=== PATIENT | male | born 1990 | race Caucasian/White ===

== ENCOUNTER 2016-11-03 01:46 | Emergency (ER) | payer SELFPAY ==
[~2016-11-03] VITALS: Ht 170.2 cm; Wt 77.0 kg
[2016-11-03] MEDS ORDERED: TETANUS, DIPHTHERIA, PERTUSSIS VAC/PF 0.5ML (>7YR OLD) IM ONE (02:15)
[2016-11-03] MEDS ORDERED: LIDOCAINE HCL/EPINEPHRINE 1%-EPI 1:100,000 20 ML VIAL INFIL ONE (02:15)
[2016-11-03] MEDS ORDERED: SODIUM CHLORIDE 0.9% 1000ML BAG (SEPSIS BOLUS) IV ONE (02:15)
[2016-11-03] MEDS ORDERED: BACITRACIN ZINC OINT UDPKT TOP ONE (02:15)
[2016-11-03 02:39] LABS: BASOPHILS % 0.7 % (0.0-2.0); EOSINOPHILS % 0.1 % (0.0-5.0); HEMATOCRIT. 44.8 % (42.0-52.0); HEMOGLOBIN. 15.6 g/dL (14.0-18.0); LYMPHOCYTES % 15.5 % (20.0-50.0); MEAN CORPUSCULAR HEMOGLOBIN 32.8 pg (28.0-32.0); MEAN CORPUSCULAR VOLUME 94.1 fL (80.0-94.0); MEAN PLATELET VOLUME 6.5 fl (7.4-10.4); MONOCYTES % 14.7 % (2.0-8.0); PLATELET 215 x1000/uL (130-400); RED BLOOD CELL COUNT 4.76 mill/uL (4.7-6.1); RED CELL DISTRIBUTION WIDTH 13.1 % (11.6-14.6)
[2016-11-03 02:48] LABS: PARTIAL THROMBOPLASTIN TIME 24.3 sec (23.4-31.0); PROTHROMBIN TIME 10.7 sec (9.4-11.6)
[2016-11-03 02:55] LABS: CARBON DIOXIDE 28 mEq/L (21-32); CHLORIDE 103 mEq/L (98-107); CREATINE KINASE 289 IU/L (39-308)
[2016-11-03] MEDS ORDERED: LIDOCAINE HCL 1%/EPI 1:200,000 30 ML VIAL MC NR (04:15)
[2016-11-03 04:30] LABS: BASOPHILS % 0.1 % (0.0-2.0); EOSINOPHILS % 0.1 % (0.0-5.0); HEMATOCRIT. 43.5 % (42.0-52.0); LYMPHOCYTES % 17.3 % (20.0-50.0); MEAN CORPUSCULAR HEMOGLOBIN 32.4 pg (28.0-32.0); MEAN CORPUSCULAR VOLUME 94.1 fL (80.0-94.0); MEAN PLATELET VOLUME 6.7 fl (7.4-10.4); MONOCYTES % 11.3 % (2.0-8.0); NEUTROPHILS % 71.2 % (40.0-76.0); PLATELET 192 x1000/uL (130-400); RED BLOOD CELL COUNT 4.62 mill/uL (4.7-6.1); RED CELL DISTRIBUTION WIDTH 13.2 % (11.6-14.6)
[2016-11-03 05:54] VITALS: BP 133/65
== END 2016-11-03 06:50 | disposition home or self-care (01) ==
LOC: ER 01:46
DX: S02.2XXA Fracture of nasal bones, initial encounter for closed fracture (principal); S00.83XA Contusion of other part of head, initial encounter; S16.1XXA Strain of muscle, fascia and tendon at neck level, initial encounter; S01.81XA Laceration without foreign body of other part of head, initial encounter; T51.0X1A Toxic effect of ethanol, accidental (unintentional), initial encounter; Y00.XXXA Assault by blunt object, initial encounter; Y93.89 Activity, other specified; Y92.488 Other paved roadways as the place of occurrence of the external cause
CPT/HCPCS: 36415; 70450; 70486; 72125; 80053; 82550; 83690; 85025; 85610; 85730; 96360; 96361; 99285; G0482; J3490; J7030; Z7610

== ENCOUNTER 2018-07-05 04:06 | Emergency (ER) | payer SELFPAY ==
[~2018-07-05] VITALS: Ht 170.2 cm; Wt 83.0 kg
[2018-07-05 04:32] VITALS: BP 142/59
== END 2018-07-05 04:36 | disposition left against medical advice (07) ==
LOC: ER 04:06
DX: Z53.21 Procedure and treatment not carried out due to patient leaving prior to being seen by health care provider (principal)

== ENCOUNTER 2019-05-06 14:51 | Emergency (ER) | payer SELFPAY ==
[~2019-05-06] VITALS: Ht 172.7 cm; Wt 65.0 kg
[2019-05-06 16:32] VITALS: BP 136/70
== END 2019-05-06 16:34 | disposition home or self-care (01) ==
LOC: ER 14:58
DX: F10.129 Alcohol abuse with intoxication, unspecified (principal); Y90.0 Blood alcohol level of less than 20 mg/100 ml
CPT/HCPCS: 99283

== ENCOUNTER 2022-12-14 07:40 | Emergency (ER) | payer MEDICAID ==
[~2022-12-14] VITALS: Ht 172.7 cm; Wt 75.0 kg
[2022-12-14 07:41] VITALS: BP 143/93; PULSE 98; RESP 18; TEMP 98.5; O2SAT 98
== END 2022-12-14 08:33 | disposition left against medical advice (07) ==
LOC: ER 07:40
DX: R04.0 Epistaxis (principal); Z53.21 Procedure and treatment not carried out due to patient leaving prior to being seen by health care provider
CPT/HCPCS: 99281

== ENCOUNTER 2023-07-10 19:03 | Emergency (ER) | payer MEDICAID ==
[~2023-07-10] VITALS: Ht 177.8 cm; Wt 91.0 kg
[2023-07-10 19:11] VITALS: O2SAT 97
[2023-07-10] MEDS ORDERED: BACITRACIN ZINC OINT UDPKT TOP ONE (19:45)
[2023-07-10] MEDS ORDERED: TETANUS, DIPHTHERIA, PERTUSSIS VAC/PF 0.5ML (>10YR OLD) IM ONE (19:45)
[2023-07-10] MEDS ORDERED: LIDOCAINE HCL/PF 1% 10 MG/ML 5ML VIAL INFIL ONE (19:45)
[2023-07-10] MEDS ORDERED: LIDOCAINE HCL/EPINEPHRINE 1%-EPI 1:100,000 20 ML VIAL INFIL ONE (19:45)
[2023-07-10] MEDS ORDERED: BO1 TP (20:06)
[2023-07-10] MEDS ORDERED: AMOX1TAB16 MT (21:16)
[2023-07-10] MEDS: LIDOCAINE HCL/EPINEPHRINE 1%-EPI 1:100,000 20 ML VIAL INFIL ONE (21:35)
[2023-07-10] MEDS: BACITRACIN ZINC OINT UDPKT TOP ONE (21:35)
[2023-07-10] MEDS: TETANUS, DIPHTHERIA, PERTUSSIS VAC/PF 0.5ML (>10YR OLD) IM ONE (21:35)
[2023-07-10] MEDS: LIDOCAINE HCL/PF 1% 10 MG/ML 5ML VIAL INFIL ONE (21:35)
[2023-07-10 21:44] VITALS: BP 152/95; PULSE 82; RESP 18; TEMP 98.6
== END 2023-07-10 21:49 | disposition home or self-care (01) ==
LOC: ER 19:03
DX: S01.412A Laceration without foreign body of left cheek and temporomandibular area, initial encounter (principal); W18.39XA Other fall on same level, initial encounter; Y93.89 Activity, other specified; Y92.89 Other specified places as the place of occurrence of the external cause; Y99.8 Other external cause status
CPT/HCPCS: 99285; 70450; 70486; 90715; 12015; 90471; J3490 ×2

== ENCOUNTER 2023-07-18 12:52 | Emergency (ER) | payer SELFPAY ==
[~2023-07-18] VITALS: Ht 170.2 cm; Wt 97.0 kg
[~2023-07-18 12:52] MED LIST: AMOX1TAB16 MT; BO1 TP
[2023-07-18 12:55] VITALS: BP 172/89; PULSE 84; RESP 19; TEMP 98.6; O2SAT 98
[2023-07-18] MEDS ORDERED: BO1 TP (13:07)
== END 2023-07-18 13:11 | disposition home or self-care (01) ==
LOC: ER 12:52
DX: S01.412D Laceration without foreign body of left cheek and temporomandibular area, subsequent encounter (principal); F10.20 Alcohol dependence, uncomplicated; X58.XXXD Exposure to other specified factors, subsequent encounter; Y90.9 Presence of alcohol in blood, level not specified
CPT/HCPCS: 99282; Z7610 ×2